=== PATIENT | male | born 1985 | race Caucasian/White ===

== ENCOUNTER 2018-02-05 21:40 | Emergency (ER) | payer OTHER ==
[2018-02-05 21:48] VITALS: BP 135/94
[2018-02-05] MEDS ORDERED: oxyCODONE/ACET 5/325 Prepack 4 PO STA (21:57)
[2018-02-05] MEDS ORDERED: PENICILLIN VK 250 MG TABLET PO STA (21:57)
--- NOTE | 2018-02-05 21:59 | ED Physician Documentation ---
PD HPI HEENT - Stated complaint Stated Complaint: TOOTH PAIN - Chief complaint Chief Complaint: Heent - History obtained from History obtained from: Patient - History of Present Illness Timing - onset: Today (He has had sensitivity from a right maxillary molar for a couple of days and it crack tonight and became severely painful. Last saw his dentist about 4 months ago and there was no indication that this problem. No fevers or facial swelling at this juncture.) Review of Systems Constitutional: denies: Fever, Chills Throat: reports: Dental pain / toothache. denies: Sore throat Cardiac: denies: Chest pain / pressure, Palpitations PD PAST MEDICAL HISTORY - Past Surgical History Past Surgical History: No - Present Medications Home Medications: Ambulatory Orders Medication Instructions Recorded Confirmed Oxycodone HCl/Acetaminophen 1 - 2 tab PO Q4H PRN #10 tablet 02/05/18 [Percocet 5-325 mg Tablet] Penicillin V Potassium 500 mg PO QID #40 tablet 02/05/18 Telmisartan [Micardis] 1 tab PO DAILY 02/05/18 02/05/18 - Allergies Allergies/Adverse Reactions: Allergies Allergy/AdvReac Type Severity Reaction Status Date / Time No Known Drug Allergies Allergy Verified 02/05/18 21:44 - Social History Does the pt smoke?: No Smoking Status: Never smoker Does the pt drink ETOH?: Yes Does the pt have substance abuse?: No - Immunizations Immunizations are current?: Yes PD ED PE NORMAL - Vitals Vital signs reviewed: Yes - General General: Alert and oriented X 3, No acute distress - HEENT HEENT: Other (3. He has a large filling in it and laterally it is cracked and tender. There is no facial or gingival swelling or trismus.) - Neuro Neuro: Alert and oriented X 3, Normal speech - Psych Psych: Normal mood, Normal affect Results - Vitals Vitals: Vital Signs - 24 hr 02/05/18 21:44 Temperature 36.0 C L Heart Rate 106 H Respiratory 16 Rate Blood Pressure 135/94 H O2 Saturation 96 Oxygen O2 Source Room air PD MEDICAL DECISION MAKING - Sepsis Event Vital Signs: Vital Signs - 24 hr 02/05/18 21:44 Temperature 36.0 C L Heart Rate 106 H Respiratory 16 Rate Blood Pressure 135/94 H O2 Saturation 96 Oxygen O2 Source Room air Departure - Departure Disposition: 01 Home, Self Care Clinical Impression: Pain due to dental caries Condition: Good Record reviewed to determine appropriate education?: Yes Instructions: ED Tooth Pain Prescriptions: Oxycodone HCl/Acetaminophen [Percocet 5-325 mg Tablet] 1 - 2 tab PO Q4H PRN #10 tablet PRN Reason: Pain Penicillin V Potassium 500 mg PO QID #40 tablet Comments: Followup with your dentist tomorrow Your blood pressure was elevated today on check into the emergency department. This does not mean that you have hypertension, it is a common phenomenon to come to the emergency department and have elevated blood pressure. I recommend that you see your primary care physician within the week to have it rechecked when you are feeling better. Forms: Activity restrictions
== END 2018-02-05 22:20 | disposition home or self-care (01) ==
LOC: ED 21:40
DX: K02.9 Dental caries, unspecified (principal); R03.0 Elevated blood-pressure reading, without diagnosis of hypertension
CPT/HCPCS: 99283; A9270